=== PATIENT | female | born 1970 | race Caucasian/White ===

== ENCOUNTER 2020-09-03 07:06 | Emergency (ER) | payer BC | END 2020-09-03 08:19 | disposition home or self-care (01) | LOC: BURERS 07:06 | DX: G97.1 Other reaction to spinal and lumbar puncture (principal); M45.9 Ankylosing spondylitis of unspecified sites in spine; Z79.1 Long term (current) use of non-steroidal anti-inflammatories (NSAID); Z79.899 Other long term (current) drug therapy; Y84.4 Aspiration of fluid as the cause of abnormal reaction of the patient, or of later complication, without mention of misadventure at the time of the procedure; Z79.82 Long term (current) use of aspirin | CPT/HCPCS: 99283 ==